=== PATIENT | male | born 1960 | race Caucasian/White ===

== ENCOUNTER 2017-10-07 14:04 | Emergency (ER) | payer OTHER ==
[~2017-10-07] VITALS: Ht 180.3 cm; Wt 104.3 kg
--- NOTE | ~2017-10-07 | EKG ---
[place] [address] [facility] [place] [address] ELECTROCARDIOGRAM REPORT Name: WILIAM SCALES Room #: DEP [facility]#: [id number] Admission: 10/07/17 Attend Phys: Discharge: 10/07/17 Date of : 58 Report #: [id number] THIS REPORT FOR: //name// [facility] ED Test Date: 2017-10-07 Test Time: 14:07:45 Pat Name: WILIAM SCALES Department: Room: Gender: M Finance Effectiveness Manager: Sri MIGUEL : 1960 Requested By: Michelle Ford Order Number: [id number] MD: Holger Barros Measurements Intervals [place] Rate: 97 P: 30 IN: 146 QRS: 28 QRSD: 96 T: 11 QT: 372 QTc: 473 Interpretive Statements Sinus rhythm RSR' in V1 or V2, right Borderline T abnormalities, anterior leads Compared to ECG 06/26/2007 12:21:54 Nonspecific change in the ST and T-wave segments Electronically Signed On 10-08-2017 14:24:03 CDT by Holger Barros [email or web address] <ELECTRONICALLY SIGNED> By: Holger Barros MD, [facility] 10/08/17 1424 1407 1407 Holger Barros MD, [facility] /EPI
[2017-10-07 14:36] LABS: HEMOGLOBIN 15.5 gm/dL (14.0-18.0); MCH 30.7 pg (26.0-34.0); MCHC 35.3 g/dL (28.0-37.0); MCV 87.1 fL (80.0-100.0); PLATELET COUNT 266 thou/uL (150-400); RBC 5.05 mil/uL (4.50-6.00); RDW 14.3 % (10.5-14.5); WBC 9.2 thou/uL (4.0-11.0)
[2017-10-07 14:43] LABS: ANION GAP 6 mmol/L (7-16); BUN 11 mg/dL (7-18); CALCIUM 9.1 mg/dL (8.5-10.1); CHLORIDE 105 mmol/L (98-107); CO2 30 mmol/L (21-32); GLUCOSE 108 mg/dL (74-106); POTASSIUM 4.2 mmol/L (3.5-5.1); SODIUM 141 mmol/L (136-145)
[2017-10-07 14:52] LABS: TROPONIN-I < 0.04 ng/mL (<0.06)
[2017-10-07 15:39] LABS: ABSOLUTE NEUTROPHILS 5.1 thou/uL (1.4-8.2); ATYPICAL LYMPHS 5 %
[2017-10-07 16:22] VITALS: BP 123/86
== END 2017-10-07 16:20 | disposition home or self-care (01) ==
LOC: ER 14:04
PROVIDERS: Emergency Medicine
DX: R07.89 Other chest pain (principal); R06.00 Dyspnea, unspecified; E78.5 Hyperlipidemia, unspecified; M19.90 Unspecified osteoarthritis, unspecified site; Z87.891 Personal history of nicotine dependence

== ENCOUNTER 2018-04-22 16:40 | Observation (INO) | payer OTHER ==
[~2018-04-22] VITALS: Ht 180.3 cm; Wt 114.3 kg
--- NOTE | ~2018-04-22 | CATHLAB ---
[facility] [address] [place] [address] INVASIVE PROCEDURE REPORT Name: WILIAM SCALES Room #: 205-P [facility] IN ..#: [id number] Admission: 04/22/18 Attend Phys: Vu Brewster, Discharge: 04/23/18 Date of : 58 Date of Service: 04/24/18 1453 Report #: [id number] THIS REPORT FOR: //name// APPROVED REPORT Study performed: 04/23/2018 11:59:15 Patient Details Patient Status: In-Patient Room #: The patient is a 57 year-old male Event Personnel Darius Gloria RN Mini Shifter, Moreno Mujica Turbine Technician, Jennifer Schneider Monitor, Anika Lynch RTR, CRACK OFF PERSON Scrub Procedures Performed Art Access - R femoral artery* Left Heart Cath w/or w/o Coronaries [id number] [facility] Aortogram Abdominal Peripheral Angio 375524 Hemostasis w/ Mynx Indication Chest pain Procedure Narrative The Right Groin^ was infiltrated with 1% Lidocaine subcutaneous anesthesia. A PINNACLE 6FR Sheath #[id number] sheath was inserted into the RFA^. Coronary angiography was performed using coronary diagnostic catheters. The right coronary system was accessed and visualized with a JR4 catheter. The left coronary system was accessed and visualized with a JL4 catheter. The left ventricle was accessed and visualized with a STR.PIG catheter. Closure device was deployed with a Fr MYNXGRIP 6/7F #[id number]. The patient tolerated the procedure well and there were no complications associated with the procedure. There was no hematoma. Intraoperative Conscious Sedation Sedation start time: 1248 Case end Time: 1310 Fentanyl 50 mcg Versed 1 mg Fluoro Time: 1.13 minutes Dose: DAP 3391.60 cGycm2 370 mGy Contrast Type and Amount: Omnipaque 145 ml Hemodynamics [facility] [address] [place] [address] INVASIVE PROCEDURE REPORT Name: SCALESWILIAM PILY Room #: 205-P [facility] IN ..#: [id number] Admission: 04/22/18 Attend Phys: Vu Brewster, Discharge: 04/23/18 Date of : 58 Date of Service: 04/24/18 1453 Report #: [id number] The aortic pressure is mmHg with a mean of 85 mmHg. The left ventricular pressure is 126/7 mmHg with a mean of mmHg. The left ventricular end diastolic pressure is 18 mmHg. Conclusion #1 left main free of disease giving rise to LAD and circumflex #2 LAD diagonal system widely patent with mild distal irregularities no occlusive disease #3 nondominant circumflex widely patent #4 30-40% mid distal RCA lesion giving rise to a small diffusely disease PDA DIANNA system. Anatomically dominant #5 normal left ventricular size and systolic function EF 55% #6 abdominal aortogram normal in caliber no aneurysm single bilateral renal arteries and iliac system is mild plaquing Recommendations and plan continue aggressive risk factor modification. No indication for coronary intervention. Smoking cessation strongly recommended. Follow-up will be arranged <ELECTRONICALLY SIGNED> By: Moreno Mujica MD, [facility] 04/24/18 1453 1453 1453 Moreno Mujica MD, FAC /INF
--- NOTE | ~2018-04-22 | EKG ---
[address] [place] [address] ELECTROCARDIOGRAM REPORT Name: WILIAM SCALES Room #: 205-P [facility]..#: [id number] Admission: 04/22/18 Attend Phys: Vu Brewster MD Discharge: Date of : 58 Report #: [id number] THIS REPORT FOR: //name// [facility] ED Test Date: 2018-04-22 Test Time: 16:57:54 Pat Name: WILIAM SCALES Department: Room: 205 Gender: M Grants Manager: pita : 1960 Requested By: Adebayo Quinn Order Number: [id number] MD: Dayne Joseph Measurements Intervals [place] Rate: 94 P: 38 FL: 146 QRS: 31 QRSD: 102 T: 15 QT: 364 QTc: 456 Interpretive Statements Sinus rhythm Low voltage, precordial leads RSR' in V1 or V2, right VCD or RVH Compared to ECG 10/07/2017 14:07:45 Low QRS voltage now present Right ventricular hypertrophy now present T-wave abnormality no longer present Electronically Signed On 04-23-2018 17:41:01 CDT by Dayne Joseph [email or web address] <ELECTRONICALLY SIGNED> By: Dyane Joseph MD 04/23/18 1741 1657 1657 Dayne Joseph MD /EPI
--- NOTE | ~2018-04-22 | 2DMMODE ---
[facility] [place] [address] 2 D/M-MODE ECHOCARDIOGRAM Name: WILIAM SCALES Room #: 205-P ADM IN M.R.#: [id number] Admission: 04/22/18 Attend Phys: Vu Brewster, Discharge: Date of : 58 Date of Service: 04/23/18 0953 Report #: [id number] THIS REPORT FOR: //name// APPROVED REPORT Study performed: 04/23/2018 08:31:36 EXAM: Comprehensive 2D, Doppler, and color-flow Echocardiogram Patient Location: Bedside Room #: [facility] Status: routine BSA: 2.32 HR: 75 bpm BP: 117/74 mmHg Rhythm: NSR Other Information Study Quality: Adequate Indications Chest Pain Hx: HTN, HLP, DM Echo Enhancing Agent Indication: Endocardial border delineation Agent(s) / Amount(s) Used: Optison 4 cc 2D Dimensions RVDd: 32.45 mm IVSd: 10.01 (7-11mm) LVOT Diam: 22.60 (18-24mm) LVDd: 46.67 mm PWd: 10.46 (7-11mm) Ascending Ao: 32.02 (22-36mm) LVDs: 37.12 (25-40mm) Aortic Root: 38.21 mm Volumes Left Atrial Volume (Systole) Single Plane 4CH: 32.63 mL Single Plane 2CH: 34.18 mL LA ESV Index: 17.00 mL/m2 Aortic Valve AoV Peak Daron.: 1.00 m/s AO Peak Gr.: 4.00 mmHg LVOT Max P.13 mmHg LVOT Max V: 0.88 m/s THOMAS Vmax: 3.54 cm2 [facility] [address] [place] [address] 2 D/M-MODE ECHOCARDIOGRAM Name: WILIAM SCALES PILY Room #: 205-P [facility] IN .R.#: [id number] Admission: 04/22/18 Attend Phys: Vu Brewster, Discharge: Date of : 58 Date of Service: 04/23/18 0953 Report #: [id number] Mitral Valve E/A Ratio: 1.4 MV Decel. Time: 157.25 ms MV E Max Daron.: 0.91 m/s MV A Daron.: 0.67 m/s MV PHT: 45.60 ms IVRT: 78.43 ms Pulmonary Valve PV Peak Daron.: 0.68 m/s PV Peak Gr.: 1.86 mmHg Pulmonary Vein P Vein S: 0.43 m/s P Vein A: 0.29 m/s P Vein D: 0.27 m/s P Vein A Dur.: 100.3 msec P Vein S/D Ratio: 1.59 Tricuspid Valve RAP Estimate: 5.00 mmHg Left Ventricle The left ventricle is normal size. There is normal left ventricular wall thickness. Left ventricular systolic function is low normal. LVEF is 50%. Moderate diastolic dysfunction is present (pseudonormal filling). Right Ventricle The right ventricle is normal size. The right ventricular systolic function is normal. Atria The left atrium size is normal. The right atrium size is normal. Aortic Valve The aortic valve is normal in structure. No aortic regurgitation is present. There is no aortic valvular stenosis. Mitral Valve The mitral valve is normal in structure. There is no mitral valve regurgitation noted. No evidence of mitral valve stenosis. Tricuspid Valve The tricuspid valve is normal in structure. Trace tricuspid regurgitation. Unable to assess PA pressure. [facility] [address] [place] [address] 2 D/M-MODE ECHOCARDIOGRAM Name: WILIAM SCALES Room #: 205-P [facility] IN .R.#: [id number] Admission: 04/22/18 Attend Phys: Vu Brewster, Discharge: Date of : 58 Date of Service: 04/23/18 0953 Report #: [id number] Pulmonic Valve The pulmonary valve is normal in structure. Trace pulmonic regurgitation. Great Vessels Aortic root is borderline dilated. The ascending aorta is normal in size. IVC is normal in size and collapses >50% with inspiration. Pericardium There is no pericardial effusion. <Conclusion> The left ventricle is normal size. Left ventricular systolic function is low normal. LVEF is 50%. Moderate diastolic dysfunction is present (pseudonormal filling). The right ventricle is normal size. The left atrium size is normal. The aortic valve is normal in structure. There is no mitral valve regurgitation noted. Trace tricuspid regurgitation. Unable to assess PA pressure. Aortic root is borderline dilated. There is no pericardial effusion. <ELECTRONICALLY SIGNED> By: Moreno Mujica MD, [facility] 04/23/1853 2 2 Moreno Mujica MD, FACC /INF
[2018-04-22 16:42] VITALS: BP 122/88
[2018-04-22] MEDS ORDERED: METFORMIN HCL500 MG PO (16:57)
[2018-04-22 17:06] LABS: HEMATOCRIT 43.7 % (42.0-52.0); HEMOGLOBIN 15.3 gm/dL (14.0-18.0); MCH 30.6 pg (26.0-34.0); MCV 87.3 fL (80.0-100.0); PLATELET COUNT 289 thou/uL (150-400); RDW 13.9 % (10.5-14.5)
[2018-04-22 17:09] LABS: AMP/METHAMP Negative (Negative); BARBITURATES Negative (Negative); BENZODIAZEPINES Negative (Negative); COCAINE Negative (Negative); METHADONE Negative (Negative); OPIATES Negative (Negative); PCP Negative (Negative)
[2018-04-22 17:38] LABS: ANION GAP 6 mmol/L (7-16); BUN 17 mg/dL (7-18); CALCIUM 9.5 mg/dL (8.5-10.1); CHLORIDE 103 mmol/L (98-107); CO2 26 mmol/L (21-32); GLUCOSE 109 mg/dL (74-106); POTASSIUM 4.2 mmol/L (3.5-5.1); SODIUM 135 mmol/L (136-145)
[2018-04-22 17:41] LABS: ABSOLUTE NEUTROPHILS 6.7 thou/uL (1.4-8.2)
[2018-04-22 17:47] LABS: ALBUMIN 3.4 g/dL (3.4-5.0); SGOT 20 U/L (15-37); SGPT 27 U/L (30-65); TOTAL BILIRUBIN 0.3 mg/dL (<0.1-1.0); TOTAL PROTEIN 7.4 g/dL (6.4-8.2); TROPONIN-I <0.06 ng/mL (<0.06)
[2018-04-22 18:00] VITALS: BP 121/85
[2018-04-22 18:19] VITALS: BP 127/100
[2018-04-22 18:36] VITALS: BP 111/79
[2018-04-22 19:51] VITALS: BP 142/86
[2018-04-22 20:51] LABS: CHOLESTEROL 290 mg/dL (<200); HDL CHOLESTEROL 36 mg/dL (>40); LDL CHOLESTEROL 181 mg/dL (<100); TC:HDL 8.1 Ratio (Not establshd); TRIGLYCERIDE 367 mg/dL (<150); VLDL 73 mg/dL (<40)
[2018-04-22 20:54] LABS: SERUM ASSESSMENT Clear
[2018-04-22 21:17] LABS: TSH 3.602 uIU/mL (0.358-3.740)
[2018-04-22 23:46] LABS: ALBUMIN 3.3 g/dL (3.4-5.0)
[2018-04-23 00:22] VITALS: BP 107/64
[2018-04-23 05:04] VITALS: BP 107/65
[2018-04-23 05:28] LABS: HEMATOCRIT 42.3 % (42.0-52.0); HEMOGLOBIN 14.5 gm/dL (14.0-18.0); MCH 30.2 pg (26.0-34.0); MCHC 34.2 g/dL (28.0-37.0); MCV 88.3 fL (80.0-100.0); RBC 4.8 mil/uL (4.50-6.00); WBC 9.3 thou/uL (4.0-11.0)
[2018-04-23 05:34] LABS: ANION GAP 8 mmol/L (7-16); BUN 15 mg/dL (7-18); CALCIUM 9.3 mg/dL (8.5-10.1); CHLORIDE 104 mmol/L (98-107); CO2 26 mmol/L (21-32); CREATININE 1.1 mg/dL (0.7-1.3); GLUCOSE 134 mg/dL (74-106); POTASSIUM 4.3 mmol/L (3.5-5.1); SODIUM 138 mmol/L (136-145); TROPONIN-I <0.06 ng/mL (<0.06)
[2018-04-23 07:08] VITALS: BP 117/74
[2018-04-23 11:44] VITALS: BP 132/89
[2018-04-23] MEDS ORDERED: ATORVASTATIN CA40 MG PO (13:52)
[2018-04-23] MEDS ORDERED: LISINOPRIL10 MG PO (13:55)
[2018-04-23] MEDS ORDERED: LOPRESSOR25 PO (13:55)
[2018-04-23] MEDS ORDERED: METFORMIN HCL500 MG PO (13:56)
[2018-04-23] MEDS ORDERED: ASPIR 8181 MG PO (13:56)
[2018-04-23 17:57] VITALS: BP 132/89
[2018-04-24 03:06] LABS: GLYCOHEMOGLOBIN (HGB A1C) 6.5 % (4.8-5.6)
[2018-04-24 03:06] LABS: GLYCOHEMOGLOBIN (HGB A1C) 6.4 % (4.8-5.6)
== END 2018-04-23 18:38 | disposition home or self-care (01) ==
LOC: ER 16:40 → EROBS 18:01 → 2N 18:01
PROVIDERS: Emergency Medicine; Internal Medicine; Nurse Practitioner Adult Health
DX: I20.8 Other forms of angina pectoris (principal); E78.5 Hyperlipidemia, unspecified; E11.9 Type 2 diabetes mellitus without complications; I10 Essential (primary) hypertension; R09.89 Other specified symptoms and signs involving the circulatory and respiratory systems; M19.90 Unspecified osteoarthritis, unspecified site; Z87.891 Personal history of nicotine dependence; Z79.899 Other long term (current) drug therapy
CPT/HCPCS: 10081